=== PATIENT | female | born 1985 | race Caucasian/White ===

== ENCOUNTER 2017-12-21 22:05 | Emergency (ER) | payer OTHER ==
[~2017-12-21] VITALS: Ht 162.6 cm; Wt 74.8 kg
== END 2017-12-21 23:45 | disposition home or self-care (01) ==
LOC: ER 22:05
DX: S61.224A Laceration with foreign body of right ring finger without damage to nail, initial encounter (principal); W45.8XXA Other foreign body or object entering through skin, initial encounter; Y93.89 Activity, other specified; Y92.89 Other specified places as the place of occurrence of the external cause; Y99.8 Other external cause status

== ENCOUNTER 2018-01-02 13:53 | Emergency (ER) | payer OTHER ==
[~2018-01-02] VITALS: Ht 170.2 cm; Wt 83.9 kg
== END 2018-01-02 17:39 | disposition home or self-care (01) ==
LOC: ER 13:53
DX: Z48.02 Encounter for removal of sutures (principal)

== ENCOUNTER 2021-08-17 16:43 | Emergency (ER) | payer BC ==
[~2021-08-17] VITALS: Ht 172.7 cm; Wt 90.7 kg
[2021-08-17] MEDS ORDERED: MACROBID 100 M100 MG PO (20:04)
== END 2021-08-17 20:11 | disposition home or self-care (01) ==
LOC: ER 16:43
DX: D17.1 Benign lipomatous neoplasm of skin and subcutaneous tissue of trunk (principal); N39.0 Urinary tract infection, site not specified